=== PATIENT | male | born 1965 | race Caucasian/White ===

== ENCOUNTER 2017-05-09 06:59 | Emergency (ER) | payer BC ==
[2017-05-09] MEDS ORDERED: 0.9 % SODIUM CHLORIDE 1,000 ML IV ONE (07:31)
[2017-05-09] MEDS ORDERED: THIAMINE HCL 100 MG/ML 2ML VIAL ONE (07:31)
--- NOTE | 2017-05-09 07:31 | ED Physician Documentation ---
Altered Mental Status - HISTORIAN Historian: patient, spouse - HPI Chief Complaint: Altered Mental Status Additional Information: etoh abuse-had xs etoh after 299-tried to check into [facility] sent here for medical clearance. Onset: other (last detox jun 2015 pt drank whiskey andbeer std 299 sstill able to walk-oriented but anxious bp elev. went to [facility] they insisted onmed clearance lprior to admission. pt w/him very supportive-anxious but cooperative. appears to handle this load etoh satis) Duration: constant Last known Well Date: 06/09/15 Last Known Well Time: 05:00 Last known Well Code/Unknown Code: Known Character of Altered Mental Status: denies: confused, combative, agitated, trouble concentrating, unresponsive, seizure activity, decreased responsiveness Context: heavy alcohol intake. denies: drug abuse (for several years-cocaine) Cognition is Usually: alert, oriented x3 Gait is Usually: walks w/o assistance Associated Symptoms: nausea - ROS EYES/ENT: denies: problems with vision CVS/RESP: denies: chest pain, shortness of breath, palpitations GI/: denies: abdominal pain MS/SKIN/LYMPH: none - PAST HX Past History: none (exept substance abuse - alcoholism) Allergies/Adverse Reactions: Allergies Allergy/AdvReac Type Severity Reaction Status Date / Time No Known Allergies Allergy Verified 05/09/17 07:15 Home Medications: Ambulatory Orders Medication Instructions Recorded NK [NK] 05/09/17 - SOCIAL HX Smoking History: greater than 1 pack/day Alcohol Use: heavy Drug Use: none - FAMILY HX Family History: no significant history - VITAL SIGNS Vital Signs: Vital Signs Temp Pulse Resp BP Pulse Ox 98.9 F 79 20 111/82 94 05/09/17 07:10 05/09/17 08:36 05/09/17 07:10 05/09/17 07:10 05/09/17 07:10 - REVIEWED ASSESSMENTS Nursing Assessment Reviewed: Yes Vitals Reviewed: Yes ED Results Lab/Radiology - Lab Results Lab Results: Lab Results 05/09/17 05/09/17 05/09/17 08:00 08:00 08:00 WBC 11.00 K/ul K/ul (4.00-12.00) RBC 5.10 M/ul M/ul (3.90-5.20) Hgb 16.4 g/dL g/dL (12.0-18.0) Hct 48.6 % % (37.0-53.0) MCV 95.4 fl fl (80.0-100.0) MCH 32.3 pg pg (28.0-34.0) MCHC 33.8 g/dL g/dL (30.0-36.0) RDW 12.9 % % (11.3-14.3) Plt Count 253 K/mm3 K/mm3 (130-400) Neut % (Auto) 67.6 % % (39.0-79.0) Lymph % (Auto) 20.7 % % (16.0-50.0) Mills % (Auto) 6.6 % % (0.0-11.0) Eos % (Auto) 1.3 % % (0.0-6.8) Baso % (Auto) 0.8 (0.0-1.5) Neut # (Auto) 7.4 # k/uL # k/uL (1.4-7.7) Lymph # (Auto) 2.3 # k/uL # k/uL (0.6-4.0) Mills # (Auto) 0.7 # k/uL # k/uL (0.0-0.9) Eos # (Auto) 0.2 # k/uL # k/uL (0.0-0.6) Baso # (Auto) 0.1 # k/uL # k/uL (0.0-0.5) Reactive Lymphs % 2.9 % % (0.0-5.0) Reactive Lymphs # 0.3 # k/uL # k/uL (0.0-0.8) PT 10.1 Seconds Seconds (9.4-11.6) INR 0.96 (0.9-1.2) Sodium 139 mmol/L mmol/L (136-145) Potassium 4.6 mmol/L mmol/L (3.5-5.1) Chloride 100 mmol/L mmol/L (98-107) Carbon Dioxide 27 mmol/L mmol/L (22-30) BUN 10 mg/dL mg/dL (9-20) Creatinine 0.80 mg/dL mg/dL (0.66-1.25) Estimated Creat Clear 123 Est GFR ( Amer) > 60 (60 - ) Est GFR (Non-Af Amer) > 60 (60 - ) Glucose 106 mg/dL mg/dL (74-106) Calcium 8.8 mg/dL mg/dL (8.4-10.2) Total Bilirubin 0.3 mg/dL mg/dL (0.2-1.3) AST 33 U/L U/L (15-46) ALT 17 U/L U/L (13-69) Alkaline Phosphatase 64 U/L U/L (38-126) Total Protein 7.8 g/dL g/dL (6.3-8.2) Albumin 4.4 g/dL g/dL (3.5-5.0) Ethyl Alcohol 301.5 mg/dL H mg/dL (0.0-10.0) - Orders Orders: ED Orders Category Date Time Status Alcohol Withdrawal Assessment Q1H Care 05/09/17 07:30 Active Alcohol Withdrawal Assessment Q1H Care 05/09/17 07:35 Active Continuous EKG monitoring Q1H Care 05/09/17 07:[address] IV Lock 1T Care 05/09/17 07:37 Active ALCOHOL MEDICAL USE ONLY Routine Lab 05/09/17 08:00 Completed AMMONIA Routine Lab 05/09/17 08:00 Received CBC/PLATELET/DIFF Routine Lab 05/09/17 08:00 Completed CMP Routine Lab 05/09/17 08:00 Completed DRUG SCREEN URINE MEDICAL ONLY Routine Lab 05/09/17 Ordered PT-INR Routine Lab 05/09/17 08:00 Completed URINALYSIS Routine Lab 05/09/17 Ordered 0.9 % Sodium Chloride [Normal Saline] 1,000 ml Med 05/09/17 07:31 Discontinued IV .STK-MED Folic Acid [Folvite] Med 05/09/17 07:32 Discontinued 5 mg .ROUTE .STK-MED ONE LORazepam [Ativan] Med 05/09/17 07:32 Discontinued 1 mg IVP NOW ONE Mvi, Adult No.1 with Vit K [M.v.i. Adult] Med 05/09/17 07:32 Discontinued 10 ml IV .STK-MED ONE Ondansetron HCl/Pf [Zofran 4 mg/2 ml] Med 05/09/17 07:33 Discontinued 4 mg IVP NOW ONE Thiamine HCl Med 05/09/17 07:31 Discontinued 200 mg .ROUTE .STK-MED ONE Thiamine HCl 100 mg Med 05/09/17 08:00 Ordered Mvi, Adult No.1 with Vit K [M.v.i. Adult] 10 ml Folic Acid [Folvite] 5 mg 0.9 % Sodium Chloride [Normal Saline] 1,000 ml IV 1T Altered Mental Status Physical - Physical Exam General Appearance: mild distress Neuro/Psych: anxiety oriented x3, no evidence of acute CVA Peripheral Exam: motor nml, sensation nml HEENT: LAURA, EOM's intact, no apparent trauma Neck: normal inspection Respiratory: no resp distress, breath sounds normal CVS: reg rate & rhythm, heart sounds normal Abdomen: non-tender Skin: warm/dry, normal color. No: cyanosis, diaphoresis, jaundice Extremities: non-tender, normal range of motion Discharge Clincal Impression: ethanol abuse, cleared for adm to [facility] Referrals: Primary Doctor,No [Primary Care Provider] - 2 Days Comments: pt cooperative fun stions satis and this etoh level - onother pos findinge for med clearance Condition: Good Disposition: 01 HOME, SELF-CARE Decision to Admit: NO Decision Time: 08:54
[2017-05-09] MEDS ORDERED: MVI, ADULT NO.1 WITH VIT K 10 ML VIAL IV ONE (07:32)
[2017-05-09] MEDS ORDERED: FOLIC ACID 5 MG/1 ML ONE (07:32)
[2017-05-09] MEDS ORDERED: LORazepam 2 MG/ML VIAL IVP ONE (07:32)
[2017-05-09] MEDS ORDERED: ONDANSETRON HCL/PF 4 MG/ 2ML VIAL IVP ONE (07:33)
[2017-05-09] MEDS ORDERED: THIAMINE HCL 100 MG, MVI, ADULT NO.1 WITH VIT K 10 ML, FOLIC ACID 5 MG in 0.9 % SODIUM ... IV SCH ×4 (08:00)
[2017-05-09 08:07] LABS: BASOPHILS % 0.8 (0.0-1.5); EOSINOPHILS % 1.3 % (0.0-6.8); MEAN CORPUSCULAR HEMOGLOBIN 32.3 pg (28.0-34.0); MEAN CORPUSCULAR VOLUME 95.4 fl (80.0-100.0); MONOCYTES % 6.6 % (0.0-11.0); NEUTROPHILS # 7.4 # k/uL (1.4-7.7)
[2017-05-09 08:39] LABS: eGFR (African) > 60; eGFR (Non-African) > 60
[2017-05-09 09:58] VITALS: BP 111/72
== END 2017-05-09 09:08 | disposition home or self-care (01) ==
LOC: ED 06:59
DX: F10.10 Alcohol abuse, uncomplicated (principal)
CPT/HCPCS: 80053; 80320; 82140; 85025; 85610; 96361; 96374; 96375; 99283; J2060; J2405; J3411; J3490; G0480; J7030; S1016

== ENCOUNTER 2017-12-12 13:12 | Outpatient (CLI) | payer BC ==
--- NOTE | 2017-12-12 16:11 | Diagnostic Imaging Report ---
DAVID DAVILA [facility] [address] [facility].[address] [id number] Report Submission Date: Dec 12, 2017 4:03:15 PM CDT Patient Study Name: ALBERTO DE Date: Dec 12, 2017 1:20:31 PM CDT Modality Type: DX Gender: M Description: UPPER EXTREMITY : 61 Institution: [facility] Physician: DAVID DAVILA Examination: Plain film right extremity. History: RIGHT THUMB PAIN POST FALL 5 DAYS AGO. PAIN IN FIRST DIGIT JOINT (Hx) Comparison exams: None available Findings: 3 views the right 1st digit demonstrate normal cortical margins. No fracture. No dislocation. No soft tissue abnormality. Impression: No acute osseous abnormality Electronically signed on Dec 12, 2017 4:03:15 PM CDT by: Guy YARBROUGH
== END 2017-12-12 13:13 ==
LOC: RAD 13:12
PROVIDERS: ATTEND Family Medicine
DX: M79.644 Pain in right finger(s) (principal)
CPT/HCPCS: 73140